=== PATIENT | male | born 1980 | race Caucasian/White ===

== ENCOUNTER 2016-12-23 03:15 | Emergency (ER) | payer BC ==
[~2016-12-23] VITALS: Ht 185.4 cm; Wt 119.9 kg
[2016-12-23 04:12] LABS: BASOPHIL COUNT 0.1 K/uL (0-0.1); EOSINOPHIL (%) 3.3 % (0-5); EOSINOPHIL COUNT 0.4 K/uL (0-0.3); HEMATOCRIT 46.8 % (38.0-50.0); IMMATURE GRANULOCYTE (%) 0.4 % (0.0-0.7); INSTRUMENT ABS NEUTROPHIL CT 7.9 K/uL; LYMPHOCYTE COUNT 1.9 K/uL (1.0-2.8); MCH 28.2 PG (29.0-34.0); MCHC 34.2 G/DL (30.0-36.0); MCV 82.4 FL (86-99); MONOCYTE (%) 5.1 % (3-12); MONOCYTE COUNT 0.6 K/uL (0-0.8); NEUTROPHIL COUNT 7.9 K/uL (1.8-6.4); PLATELET COUNT 306 K/uL (156-360); RBC DIS.WIDTH-CV 12.1 % (11.8-14.6); RBC DIS.WIDTH-SD 36.7 % (39-53); RED BLOOD COUNT 5.68 M/uL (4.00-5.50); WHITE BLOOD COUNT 10.8 K/uL (4.1-10.2)
[2016-12-23 04:21] LABS: CHLORIDE 103 mEq/L (99-109); POTASSIUM 4.3 mEq/L (3.7-5.4); SODIUM 136 mEq/L (136-147)
[2016-12-23 04:23] LABS: GLUCOSE 113 mg/dL (70-99)
[2016-12-23 04:24] LABS: ANION GAP 10 MEQ/L (2-14)
[2016-12-23 04:25] LABS: TOTAL BILIRUBIN 0.7 mg/dL (0.0-1.0)
[2016-12-23 04:26] LABS: ALKALINE PHOSPHATASE 61 IU/L (3-129)
[2016-12-23 04:27] LABS: GFR ESTIMATE (CALCULATED) > 59 mL/min/
[2016-12-23 04:28] LABS: UREA NITROGEN (BUN) 18 mg/dL (9-23)
[2016-12-23 04:30] LABS: LIPASE 16 U/L (1.0-51.0)
[2016-12-23 05:14] LABS: ADD MIUA? YES; BILIRUBIN NEGATIVE; BLOOD SMALL; COLOR YELLOW ((YELLOW)); GLUCOSE (STRIP) NEGATIVE; KETONES NEGATIVE; LEUKOCYTES NEGATIVE; NITRITE NEGATIVE; PROTEIN (STRIP) NEGATIVE; SPECIFIC GRAVITY 1.025 (1.000-1.030); UROBILINOGEN 0.2 MG/DL (0.2-1.0)
[2016-12-23 05:19] LABS: BACTERIA NONE SEEN /HPF; EPITHELIAL CELLS NONE SEEN /HPF; MUCUS TRACE /LPF; RED BLOOD CELLS 0-5 /HPF (0-5); UCUL ADDED? NO; WHITE BLOOD CELLS NONE SEEN /HPF (0-5)
[2016-12-23] MEDS ORDERED: PERCOCET 5/31 TABLET PO (07:27)
[2016-12-23] MEDS ORDERED: MOTRIN800 MG PO (07:27)
[2016-12-23 07:38] VITALS: BP 116/84
== END 2016-12-23 07:39 | disposition home or self-care (01) ==
LOC: EME 03:15
PROVIDERS: Emergency Medicine
DX: K80.20 Calculus of gallbladder without cholecystitis without obstruction (principal)
CPT/HCPCS: 71010; 71260; 74177; 76705; 80053; 81003; 83690; 85025; 93005; 99281; 99284; J2270; J2405; J7030

== ENCOUNTER 2017-02-14 05:38 | Day surgery (SDC) | payer BC ==
[~2017-02-14] VITALS: Ht 185.4 cm; Wt 115.7 kg
[~2017-02-14 05:38] MED LIST: ADVAIR 500/501 DISK IH; FLOVENT IH; MOTRIN800 MG PO; PERCOCET 5/31 TABLET PO; QNASL8.7 GM BOTH NARES; SINGULAIR10 MG PO; ZYRTEC-D1 TABLE1 PO; ZYRTEC10 M3 PO
[2017-02-14 06:16] VITALS: BP 140/80
[2017-02-14] MEDS ORDERED: NORCO 5/3251 TABLET PO (08:23)
[2017-02-14 09:46] VITALS: BP 125/63
[2017-02-14 10:24] VITALS: BP 122/82
== END 2017-02-14 12:22 | disposition home or self-care (01) ==
LOC: SDC 05:38
DX: K80.10 Calculus of gallbladder with chronic cholecystitis without obstruction (principal); D48.1 Neoplasm of uncertain behavior of connective and other soft tissue; J45.909 Unspecified asthma, uncomplicated
CPT/HCPCS: 88304; 88305; 94640 76; J0330; J0690; J1100; J1170; J2250; J2405; J2710; J3010